=== PATIENT | male | born 1990 | race Caucasian/White ===

== ENCOUNTER 2020-04-22 13:34 | Emergency (ER) | payer SELFPAY ==
[2020-04-22 13:35] VITALS: BP 121/69; PULSE 61; RESP 16; TEMP 36.5; O2SAT 99; BMI 31.4
--- NOTE | 2020-04-22 15:17 | CT_ITS ---
STUDY: CT BRAIN WITHOUT CONTRAST REASON FOR EXAM: Male, 30 years old. HEADACHE AND RIGHT POSTERIOR SCALP SWELLING RADIATION DOSAGE (If Supplied By Facility): CTDIvol = ( 44.99 ) mGy, DLP = ( 846.73 ) mGycm TECHNIQUE: Transaxial CT imaging of the brain was performed without administration of intravenous contrast material. Individualized dose optimization techniques were used for this CT. COMPARISON: No relevant priors. FINDINGS: Normal soft tissue structures. Normal calvarium. Normal size ventricles and extra-axial spaces for the patient''s age. Normal white matter tracts of the cerebral hemispheres. Normal basal ganglia and thalami. Normal brainstem. Normal cerebellum. There is no intracranial hemorrhage. There are no findings of an acute ischemic infarction. Normal visualized paranasal sinuses. CT/Brain/Head without Contrast IMPRESSION: Normal unenhanced CT scan of the brain. Electronically Signed: Luis Maldonado MD at 16:12 EDT Tel , Service support ,
[2020-04-22 15:43] LABS: Absolute Lymphocyte Count 1.88 X10^3/uL (0.83-4.51); Absolute Neutrophil Count 5.8 X10^3/uL (2.0-7.7); Basophil# 0.02 X10^3/uL; Basophil% 0.2 % (0-1); Eosinophil# 0.32 X10^3/uL; Eosinophils% 3.7 % (0-5); Hemoglobin 14.4 g/dL (13.0-16.5); Lymphocyte # 1.88 X10^3/ul (4.0); Lymphocyte % 21.9 % (19-41); Mean Corp Hgb Conc 33.5 g/dL (32-36); Mean Corpuscular Volume 86.7 fL (80-94); Mean Platelet Vol. 10.1 fl (6.2-12.0); Monocyte# 0.52 X10^3/uL; Monocyte% 6.1 % (0-10); NRBC Flagged by Analyzer 0 % (0-5); Neutrophil # 5.83 X10^3/uL (2.7-7.7); Neutrophil % 67.9 % (47-70); Platelet Count 213 K/mm3 (150-450); RBC Distribution Width CV 12.6 % (11.6-14.6); RBC Distribution Width SD 39.7 fl (35.1-43.9); Red Blood Count 4.96 M/mm3 (4.6-6.2); White Blood Count 8.6 K/mm3 (4.4-11.0)
[2020-04-22 15:55] LABS: Anion Gap 3 (5-15); BUN 11 mg/dL (7-18); BUN/Creat Ratio 8.7 RATIO (10-20); Calcium,Total 9.1 mg/dL (8.5-10.1); Chloride 107 mmol/L (98-107); Creatinine, Serum 1.27 mg/dL (0.70-1.30); EST Glomerular Filtration Rate 71 mL/min (>60); Est Glom Filt Rate - Afr Amer 86 mL/min (>60); Estimated Creatinine Clearance 96.99 ml/min; Glucose 93 mg/dL (74-106); Potassium 4.2 mmol/L (3.5-5.1); Sodium Level 141 mmol/L (136-145)
--- NOTE | 2020-04-22 16:51 | ED.VISSUMM ---
- ER Visit Summary Date of Service: 04/22/20 Chief Complaint: [Right sided head pain] History of Present Illness: The patient is a 30 M [presents to the emergency department with pain to the right side of scalp that started about a week ago. Patient is not sure if maybe he was bitten or stung by something. Patient denies any trauma to his scalp. Patient denies any fever, chills, or sweats. Patient has pain when he touches the scalp or lays on it. Patient also states that he has had some issues with constipation and has not had a bowel movement in 3 days. He denies any abdominal pain. He denies fever or vomiting.] Physical Examination: [HEENT-PERRLA, EOMI. Cranial nerves II through XII grossly intact. TMs clear. Mucous membranes moist. No adenopathy. Evaluation of the posterior right side of the scalp reveals some soft tissue swelling without evidence of erythema or cellulitis. No discrete abscess palpated. There is no ecchymosis or bruising to indicate hematoma. No bony step-offs or depressions. Cardiovascular-regular rate and rhythm without murmur or ectopy Lungs-clear to auscultation, chest wall stable without crepitus or subcu emphysema Abdomen-normoactive bowel sounds, soft, nontender, no rebound or rigidity, no peritoneal signs. Extremities-intact ?4, normal range of motion, normal pulses, atraumatic] Test Results: [CT scan of the brain without contrast was unremarkable. Patient CBC with differential and chemistries were unremarkable.] Emergency Department Course and Treatment: [Patient will be started on Keflex in case this is some sort of cyst. Patient advised to use parallax which is [id number] daily for his constipation issues. Patient will be referred to Dr. East for follow-up regarding the soft tissue swelling of the scalp if symptoms not resolved.] Treatment Plan: [Patient will be treated with Keflex and advised to follow-up with surgeon in 5 to 7 days.] Disposition: [Discharged home in stable condition] Impression: [Scalp pain-etiology uncertain Constipation] This note was generated with [employer] software. It may contain incorrect words, spelling, and punctuation that were not noted in review of the chart prior to signing ED Disposition - Plan for ED Patient: Referrals: Care Physician,No Primary [Primary Care Provider] -
--- NOTE | 2020-04-22 16:54 | ED.DEP ---
ED Disposition - Plan for ED Patient: Instructions: ED Headache Unspecified, ED Constipation Prescriptions: Cephalexin [Keflex] 500 mg PO Q6 #40 cap Prescription Printed Referrals: Care Physician,No Primary [Primary Care Provider] - Mauro East MD [STAFF PHYSICIAN] - 5-7 Days Additional Instructions: use Miralax for constipation daily, which is over the counter The reason for scalp swelling is not clear
== END 2020-04-22 17:04 | disposition home or self-care (01) ==
LOC: ED 15:46
PROVIDERS: Emergency Provider Emergency Medicine
DX: R51.9 Headache, unspecified (principal); K59.00 Constipation, unspecified
CPT/HCPCS: 70450; 80048; 85025; 99282